=== PATIENT | female | born 1945 | race Caucasian/White ===

== ENCOUNTER 2017-03-08 14:14 | Outpatient (CLI) ==
[2014-02-16 09:30] VITALS: BMI 29.9
== END 2017-03-08 14:15 | disposition home or self-care (01) ==
LOC: RAD 14:14
PROVIDERS: ATTEND Internal Medicine
DX: Z12.31 Encounter for screening mammogram for malignant neoplasm of breast (principal)
CPT/HCPCS: 77067

== ENCOUNTER 2017-08-02 10:43 | Outpatient (CLI) ==
[2014-02-16 09:30] VITALS: BMI 29.9
--- NOTE | 2017-08-02 12:14 | CT ---
EXAM: CT ABDOMEN AND PELVIS HISTORY: Left lower quadrant pain, abdominal hernia TECHNIQUE: CT abdomen and pelvis without intravenous contrast. Images were reconstructed using 3 mm section thickness. Reformations were prepared. COMPARISON: 02/16/2014 and 11/29/2007 FINDINGS: Diagnostic limitations exist without including contrast enhanced images. No focal hepatic or splenic lesion identified. Gallbladder is absent. Pancreas and adrenal glands are within normal limits. T here are a few renal stones bilaterally largest located on the right at about 4.3 mm. There is a 2.2 cm cystic mass of the central inferior left kidney. No evidence of ureteral calculus. There is no pe rinephric fat stranding. Minimal atherosclerotic disease. Stomach is within normal limits. The patient gave a history of previous appendectomy and no appendix is seen. Minimal distal colon diverticulosis. Normal bowel gas pattern. No uterus is seen. Urinar y bladder appears normal. There is no ascites or inflammatory infiltration of the abdominal fat. No ventral abdominal wall hernia is seen. There are moderate degenerative changes of the spine at th e lumbosacral junction. Lung bases are free of acute infiltrate. No pneumoperitoneum. IMPRESSION: 1. No clear etiology for left lower quadrant pain and was found. 2. Minimal distal colon diverticulosis without diverticulitis. 3. No abdominal wall hernia. 4. A 2.2 cm cystic mass of the central inferior left kidney which it is stable since the 2013 exam a lthough new since 2008 exam. This could represent focal dilatation of the inferior collecting system secondary to interval development of mild obstruction of this portion of the kidney versus interval development of peripelvic cyst among other possibilities. Less likely a neoplasm given stability sin ce 2013.
== END 2017-08-02 10:44 | disposition home or self-care (01) ==
LOC: RAD 10:43
PROVIDERS: ATTEND Internal Medicine
DX: R10.32 Left lower quadrant pain (principal); R19.00 Intra-abdominal and pelvic swelling, mass and lump, unspecified site

== ENCOUNTER 2018-01-05 13:59 | Emergency (ER) ==
[2018-01-05 14:02] VITALS: BP 145/77; TEMP 98.4; BMI 25.2
[2018-01-05] MEDS ORDERED: MORPHINE 2 MG/ML SYRINGE IM STA (14:24)
[2018-01-05] MEDS ORDERED: ZOFRAN 4 MG/2 ML IM STA (14:25)
--- NOTE | 2018-01-05 15:19 | CT ---
EXAM: CT abdomen pelvis without contrast HISTORY: Right flank pain COMPARISON: None TECHNIQUE: CT abdomen pelvis performed without intravenous contrast. Coronal and sagittal reformatt ed images obtained FINDINGS: Mild dependent density lung bases. No free air. No acute abnormalities of the bones. De generative change in the spine. Heart normal in size. Evaluation organ parenchyma limited without c ontrast. Liver is enlarged. Patient status post cholecystectomy. Pancreas unremarkable. Spleen un remarkable. Granulomas calcification spleen. Spleen otherwise unremarkable. Adrenals unremarkable. Aorta normal in caliber. Very mild atherosclerosis. Patient status post hysterectomy. No lymphad enopathy or ascites. Small hiatal hernia. No dilated loops small bowel. Appendix not visualized. Mild colonic diverticulosis. There is moderate right hydroureteronephrosis secondary to a 6 x 8 x 7 mm (AP x transverse x craniocaudal) obstructing calculus in the mid to distal right ureter. Mild ass ociated right perinephric stranding. There are multiple bilateral nonobstructing renal calculi measu ring up to 7 mm in the left kidney. Left parapelvic cyst. No left hydronephrosis. No calculi visua lized in the normal course of the left ureter. Bladder decompressed and poorly evaluated. IMPRESSION: 1. Moderate right hydroureteronephrosis secondary to a 6 x 8 x 7 mm (AP x transverse x craniocaudal) obstructing calculus in the mid to distal right ureter. 2. Bilateral nephrolithiasis. 3. Hepatomegaly. 4. Mild colonic diverticulosis. 5. Left parapelvic cyst.
--- NOTE | 2018-01-05 15:42 | ED.PDOC ---
General ED Provider: Dr. ESVIN MARRUFO Chief Complaint: Back Pain Stated Complaint: RIGHT FLANK PAIN Time Seen by Physician: 14:00 (SEEN WITH HER NURSE AT ALL TIMES HAS HISTORY OF KIDNEY STONES VERY FAMILIAR WITH HER PAIN ROUTINE) Mode of Arrival: Walk-In Information Source: Patient Exam Limitations: No limitations Primary Care Provider: JOCELYN PEREZ Nursing and Triage Documentation Reviewed and Agree: Yes Does patient meet sepsis criteria?: No System Inflammatory Response Syndrome: Not Applicable Sepsis Protocol: For patient's 13 years and over: Temp is 96.8 and below OR 101 and greater Pulse >90 BPM Resp >20/minute Acutely Altered Mental Status Are patient's symptoms suggestive of a new infection, such as: -Pneumonia -Skin, Soft Tissue -Endocarditis -UTI -Bone, Joint Infection -Implantable Device -Acute Abdominal Infection -Wound Infection -Meningitis -Blood Stream Catheter Infection -Unknown Musculoskeletal Complaint Exam - Back Pain Complaint/Exam Mechanism of Injury: Reports: No known trauma Onset/Duration: PAIN STARTED TODAY Symptoms Are: Still present Timing: Constant Episodes Lasting: Hours Initial Severity: Moderate Current Severity: Moderate Location: Reports: Discrete (RIGHT FLANK) Character: Reports: Spasmodic Aggravating: Reports: None Alleviating: Reports: None Associated Signs and Symptoms: Reports: Flank pain (RIGHT). Denies: Swelling, Redness, Bruising, Fever, Weakness, Numbness, Tingling, Abdominal pain, Bladder incontinence, Bowel incontinence, Weight loss, Pain with weight bearing Related History: Reports: Similar episode (RENAL STONE ) TAD Risk Factors: Reports: None Cauda Equina Risk Factors: Reports: None Epidural Abcess Risk Factors: Reports: None Related Surgical History: Reports: None Focal Tenderness: No Paraspinal Muscle Tenderness: No Paraspinal Muscle Spasm: No Scoliosis: No Lordosis: No Kyphosis: No SLR Test: Right Negative, Left Negative Hip Motion Testing Pain: Right Negative, Left Negative Focal Weakness: Present: None Focal Sensory Loss: Present: None Gait: Present: Normal Differential Diagnoses: Renal Colic, Strain, Sprain Review of Systems - Review Of Systems Constitutional: Reports: No symptoms Eyes: Reports: No symptoms Ears, Nose, Mouth, Throat: Reports: No symptoms Respiratory: Reports: No symptoms Cardiac: Reports: No symptoms GI: Reports: No symptoms : Reports: No symptoms Musculoskeletal: Reports: Back pain (RIGHT FLANK) Skin: Reports: No symptoms Neurological: Reports: No symptoms Endocrine: Reports: No symptoms Hematologic/Lymphatic: Reports: No symptoms All Other Systems: Reviewed and Negative Past Medical History - Past Medical History Previously Healthy: Yes Endocrine: Reports: Dyslipidemia Cardiovascular: Reports: Hypertension Respiratory: Reports: None Hematological: Reports: None Gastrointestinal: Reports: None Genitourinary: Reports: None Neuro/Psych: Reports: None Musculoskeletal: Reports: None Cancer: Reports: None Last Menstrual Period: N/A - Surgical History General Surgical History: Reports: None - Family History Family History: Reports: None - Social History Smoking Status: Former smoker Hx Substance Use: No Alcohol Screening: None - Immunizations Tetanus Shot up to Date: Yes Physical Exam - Physical Exam Appearance: Well-appearing, No pain distress, Well-nourished Eyes: GRISELDA, EOMI, Conjunctiva clear ENT: Ears normal, Nose normal, Oropharynx normal Respiratory: Airway patent, Breath sounds clear, Breath sounds equal, Respirations nonlabored Cardiovascular: RRR, Pulses normal, No rub, No murmur GI/: Soft, Nontender, No masses, Bowel sounds normal, No Organomegaly Musculoskeletal: Normal strength, ROM intact, No edema, No calf tenderness Skin: Warm, Dry, Normal color Neurological: Sensation intact, Motor intact, Reflexes intact, Cranial nerves intact, Alert, Oriented Psychiatric: Affect appropriate, Mood appropriate Interpretation - Radiology Interpretation Radiology Interpretation By: Radiologist Radiology Results: Positive (OBSTRUCTING RENAL STONE) Physician Notification - Case Discussed Physician Notified: GEORGE Time of Notification: 15:43 (PAIN CONTROL IN SHOULD HAVE BREAK THROUGH PAIN MUST GO THE [facility] GEORGE SPEARS HAD STATED ) Critical Care Note - Critical Care Note Total Time (mins): 0 Course - Course Hematology/Chemistry: 01/05/18 14:30 01/05/18 14:30 Orders, Labs, Meds: Lab Review 01/05/18 01/05/18 14:30 14:30 WBC 12.84 H RBC 4.57 Hgb 13.3 Hct 40.2 MCV 88.0 MCH 29.1 MCHC 33.1 RDW Coeff of [place] 13.9 Plt Count 150 Immature Gran % (Auto) 0.2 Neut % (Auto) 87.8 Lymph % (Auto) 6.5 L [place] % (Auto) 5.1 Eos % (Auto) 0.2 Baso % (Auto) 0.2 Immature Gran # (Auto) 0.0 Neut # (Auto) 11.3 H Lymph # (Auto) 0.8 [place] # (Auto) 0.7 Eos # (Auto) 0.0 Baso # (Auto) 0.0 Sodium 138.5 Potassium 3.99 Chloride 104.9 Carbon Dioxide 26.9 Anion Gap 10.69 BUN 24.2 H Creatinine 1.02 Estimated GFR (MDRD) 54.00 BUN/Creatinine Ratio 23.72 Glucose 120.1 H Calcium 9.66 Total Bilirubin 0.63 AST 21.0 ALT 14.1 Alkaline Phosphatase 60.5 Total Protein 6.77 Albumin 4.26 Globulin 2.51 Albumin/Globulin Ratio 1.69 Orders Category Date Time Status CBC W/ AUTO DIFF Stat LAB 01/05/18 14:30 Completed COMPREHENSIVE METABOLIC PANEL Stat LAB 01/05/18 14:30 Completed URINALYSIS C & S IF INDICATED Stat LAB 01/05/18 14:24 Ordered Morphine Sulfate [Morphine 2 mg/ml Syringe] MEDS 01/05/18 14:24 Discontinued 2 mg IM ONCE STA Ondansetron HCl/Pf [Zofran 4 mg/2 ml] MEDS 01/05/18 14:25 Discontinued 4 mg IM ONCE STA CT ABD/PEL WO RENAL STONE PROT Stat RADS 01/05/18 14:22 Completed Medications Discontinued Medications Generic Name Dose Route Start Last Admin Trade Name Abisai PRN Reason Stop Dose Admin Morphine Sulfate 2 mg 01/05/18 14:24 01/05/18 14:37 Morphine 2 Mg/Ml Syringe IM 01/05/18 14:25 2 mg ONCE STA Administration Ondansetron HCl 4 mg 01/05/18 14:25 01/05/18 14:38 Zofran 4 Mg/2 Ml IM 01/05/18 14:26 4 mg ONCE STA Administration Vital Signs: Temp Pulse Resp BP Pulse Ox 01/05/18 14:00 98.4 F 75 16 145/77 H 99 Departure - Departure Time of Disposition: 15:44 Disposition: HOME SELF-CARE Discharge Problem: Renal calculus, right Instructions: Flank Pain (ED), Kidney Stones (ED), Renal Colic (ED) Condition: Good Pt referred to PMD for follow-up: Yes IPMP verified?: No Additional Instructions: Please call your Family Physician as soon as possible to schedule a follow-up appointment.DOCTOR GEORGE STATED IF YOU HAVE PAIN YOU MUST GO TO [facility] HE WILL SEE YOU THERE Allergies/Adverse Reactions: Allergies No Known Allergies Allergy (Unverified 01/05/18 14:02) Home Medications: Ambulatory Orders Bisoprolol Fumarate/Hctz [Ziac 5-6.25 mg] 5 mg PO DAILY 02/16/14 Cholecalciferol (Vitamin D3) [Vitamin D] 5,000 unit PO DAILY 02/16/14 Hydrocodone/Acetaminophen [Lortab 5-325 mg Tablet] 5 mg PO DIRECTED PRN 02/16 Simvastatin 40 mg PO DAILY 02/16/14 Aspirin [Adult Low Dose Aspirin EC] 81 mg PO DAILY 01/05/18 Disposition Discussed With: Patient
== END 2018-01-05 15:54 | disposition home or self-care (01) ==
LOC: ED 13:59
DX: N20.0 Calculus of kidney (principal); M54.9 Dorsalgia, unspecified; R10.9 Unspecified abdominal pain; Z87.442 Personal history of urinary calculi; E78.5 Hyperlipidemia, unspecified; I10 Essential (primary) hypertension
CPT/HCPCS: 36415; 74176; 80053; 85025; 96372; 99283